=== PATIENT | male | born 2000 | race Caucasian/White ===

== ENCOUNTER 2022-08-09 19:41 | Emergency (ER) | payer BC ==
[2022-08-09] MEDS ORDERED: diphenhydrAMINE 50 MG/ML VIAL ONE (19:53)
[2022-08-09] MEDS ORDERED: methylPREDNISolone Sod Succ/PF 125 MG/2 ML VIAL ONE (19:53)
[2022-08-09] MEDS ORDERED: Famotidine/PF 20 mg/2ml Vial ONE (19:54)
[2022-08-09] MEDS ORDERED: EPINEPHrine 1 MG/ML AMP ONE (19:54)
== END 2022-08-09 20:59 | disposition home or self-care (01) ==
LOC: CSHERS 19:41
DX: T78.01XA Anaphylactic reaction due to peanuts, initial encounter (principal)
CPT/HCPCS: 96372; 96374; 96375; J0171; J1200; J2930; S0028